=== PATIENT | female | born 1955 | race Caucasian/White ===

== ENCOUNTER 2022-10-02 18:34 | Emergency (ER) | payer MEDICARE, OTHER ==
--- NOTE | 2022-10-02 18:56 | ED ---
General Adult HPI - General Source: RN notes reviewed <Henny Velazquez - Last Filed: 10/02/22 18:53> <Aura Angela - Last Filed: 10/03/22 02:56> - General Stated complaint: constipation Time Seen by Provider: 10/02/22 18:53 - History of Present Illness Initial comments: 67-year-old female presents the emergency department with chief complaint of constipation. Reports accompanying nausea and vomiting. Reports last bowel movement approximately 8 days ago. (Henny Velazquez) 67-year-old female presenting with chief complaint of constipation. Last BM was 7-8 days ago. Patient is currently diagnosed with terminal pancreatic cancer. Her brother at bedside states that the patient has hardly been eating or drinking and he is concerned for dehydration. He states that they currently have a social work supervisor working on placement for [facility]. Patient has tried multiple at home remedies for constipation including stool softeners. States that she has had an episode of nausea and vomiting. No fevers or chills. No chest pain or difficulty breathing. No URI like symptoms. No dysuria or hematuria. (Aura Angela) - Related Data Home Medications Medication Instructions Recorded Confirmed Atorvastatin [Lipitor] 80 mg PO DAILY 10/02/22 10/02/22 Clopidogrel [Plavix] 75 mg PO DAILY 10/02/22 10/02/22 Cyclobenzaprine [Flexeril] 10 mg PO TID PRN 10/02/22 10/02/22 Dextroamphetamine/Amphetamine 15 mg PO DAILY@1400 10/02/22 10/02/22 [Adderall] Dextroamphetamine/Amphetamine 30 mg PO DAILY@0800 10/02/22 10/02/22 [Adderall] Levothyroxine Sodium [Synthroid] 112 mcg PO DAILY 10/02/22 10/02/22 Lidocaine-Prilocaine Cream [Emla 1 applic TOPICAL DAILY PRN 10/02/22 10/02/22 Cream 2.5%/2.5%] Omeprazole 20 mg PO DAILY 10/02/22 10/02/22 Ondansetron [Zofran] 4 - 8 mg PO Q8H PRN 10/02/22 10/02/22 Prochlorperazine Maleate 10 mg PO Q6H PRN 10/02/22 10/02/22 amLODIPine [Norvasc] 2.5 mg PO DAILY 10/02/22 10/02/22 lisinopriL 40 mg PO DAILY 10/02/22 10/02/22 oxyCODONE HCL [OxyIR] 5 mg PO Q4H PRN 10/02/22 10/02/22 Allergies Allergy/AdvReac Type Severity Reaction Status Date / Time No Known Allergies Allergy Verified 10/02/22 22:14 Review of Systems ROS Other: All systems not noted in ROS Statement are negative. <Henny Velazquez - Last Filed: 10/02/22 18:53> ROS Other: All systems not noted in ROS Statement are negative. <Aura Angela - Last Filed: 10/03/22 02:56> ROS Statement: Those systems with pertinent positive or pertinent negative responses have been documented in the HPI. General Exam <Henny Velazquez - Last Filed: 10/02/22 18:53> Limitations: no limitations General appearance: alert, in no apparent distress Head exam: Present: atraumatic, normocephalic, normal inspection Eye exam: Present: normal appearance, EOMI Neck exam: Present: normal inspection, full ROM Respiratory exam: Present: normal lung sounds bilaterally. Absent: respiratory distress, wheezes, rales, rhonchi, stridor Cardiovascular Exam: Present: regular rate, normal rhythm, normal heart sounds. Absent: systolic murmur, diastolic murmur, rubs, gallop, clicks GI/Abdominal exam: Present: soft, normal bowel sounds. Absent: distended, tenderness, guarding, rebound, rigid Rectal exam: Present: fecal impaction Neurological exam: Present: alert, oriented X3, CN II-XII intact Psychiatric exam: Present: normal affect, normal mood Skin exam: Present: warm, dry, intact, normal color. Absent: rash <Aura Angela - Last Filed: 10/03/22 02:56> - General Exam Comments Initial Comments: Visual Physical Exam Vital signs reviewed General: Well-appearing, nontoxic, no acute distress. Head: Normocephalic, atraumatic Eyes: PERRLA, EOMI ENT: Airway patent Chest: Nonlabored breathing Skin: No visual rash, normal skin tone Neuro: Alert and oriented 3 Musculoskeletal: No gross abnormalities I performed the quick note portion of this exam, verbal signature Henny Velazquez PA-C (Henny Velazquez) Course Vital Signs 10/02/22 10/02/22 10/02/22 18:54 21:59 23:40 Temperature 99.6 F 98.2 F Pulse Rate 112 H 107 H 78 Respiratory 20 18 18 Rate Blood Pressure 107/56 102/67 127/81 O2 Sat by Pulse 98 98 98 Oximetry Medical Decision Making - Lab Data Result diagrams: 10/02/22 21:44 10/02/22 21:44 <Aura Angela - Last Filed: 10/03/22 02:56> - Medical Decision Making Was pt. sent in by a medical professional or institution ([facility], [employer]QUISITION SPECIALIST, urgent care, hospital, or [facility]...) When possible be specific @ -No Did you speak to anyone other than the patient for history (EMS, parent, family, police, friend...)? What history was obtained from this source @ -History supplemented by the patient's brother Did you review nursing and triage notes (agree or disagree)? Why? @ -I reviewed and agree with nursing and triage notes Were old charts reviewed (outside hosp., previous admission, EMS record, old EKG, old radiological studies, urgent care reports/EKG's, [facility] records)? Report findings @ -No old charts were reviewed Differential Diagnosis (chest pain, altered mental status, abdominal pain women, abdominal pain men, vaginal bleeding, weakness, fever, dyspnea, syncope, headache, dizziness, GI bleed, back pain, seizure, CVA, palpatations, mental health, musculoskeletal)? @ -Differential includes constipation, ileus, bowel obstruction, this is not an all inclusive list EKG interpreted by me (3pts min.). @ -As above X-rays interpreted by me (1pt min.). @ -KUB x-ray shows high density stool in the rectum. Otherwise nonspecific bowel gas pattern without radiographic evidence for acute process CT interpreted by me (1pt min.). @ -None done U/S interpreted by me (1pt. min.). @ -None done What testing was considered but not performed or refused? (CT, X-rays, U/S, labs)? Why? @ -None What meds were considered but not given or refused? Why? @ -None Did you discuss the management of the patient with other professionals (professionals i.e. , PA, LAND ACQUISITION SPECIALIST, lab, RT, psych nurse, social work supervisor, bessemer converter operator, teacher, special officer, case management coordinator)? Give summary @ -No Was smoking cessation discussed for >3mins.? @ -No Was critical care preformed (if so, how long)? @ -No Were there social determinants of health that impacted care today? How? (Homelessness, low income, unemployed, alcoholism, drug addiction, transportation, low edu. Level, literacy, decrease access to med. care, fdc, re hab)? @ -No Was there de-escalation of care discussed even if they declined (Discuss DNR or withdrawal of care, Hospice)? DNR status @ -No What co-morbidities impacted this encounter? (DM, HTN, Smoking, COPD, CAD, Cancer, CVA, ARF, Chemo, Hep., AIDS, mental health diagnosis, sleep apnea, morbid obesity)? @ -None Was patient admitted / discharged? Hospital course, mention meds given and route, prescriptions, significant lab abnormalities, going to OR and other pertinent info. @ -67-year-old female with history of terminal pancreatic cancer presenting with chief complaint of constipation. Last bowel movement was 7-8 days ago. KUB x-ray shows high density stool in the rectum. On digital exam the patient is impacted. I attempted to disimpact her however the patient requested that I stop secondary to pain. She is administered an enema and had a fair amount of output. She reports improvement in symptoms after bowel movement. She was given IV fluids. She'll be discharged Home with brother. Follow-up with PCP. Report back to ER with any new or worsening symptoms. Discussed return parameters and answered all questions. Patient conveyed verbal understanding and agreed to the plan. I discussed this case in detail with my attending Dr. Birch Undiagnosed new problem with uncertain prognosis? @ -No Drug Therapy requiring intensive monitoring for toxicity (Heparin, Nitro, Insulin, Cardizem)? @ -No Were any procedures done? @ -No Diagnosis/symptom? @ -Constipation Acute, or Chronic, or Acute on Chronic? @ -Acute Uncomplicated (without systemic symptoms) or Complicated (systemic symptoms)? @ -Uncomplicated Side effects of treatment? @ -No Exacerbation, Progression, or Severe Exacerbation? @ -No Poses a threat to life or bodily function? How? (Chest pain, USA, MS, pneumonia, PE, COPD, DKA, ARF, appy, cholecystitis, CVA, Diverticulitis, Homicidal, Suicidal, threat to staff... and all critical care pts) @ -No (Aura Angela) - Lab Data Lab Results 10/02/22 10/02/22 Range/Units 21:44 21:44 WBC 6.2 (3.8-10.6) k/uL RBC 3.31 L (3.80-5.40) m/uL Hgb 10.1 L (11.4-16.0) gm/dL Hct 29.5 L (34.0-46.0) % MCV 89.0 (80.0-100.0) fL MCH 30.6 (25.0-35.0) pg MCHC 34.4 (31.0-37.0) g/dL RDW 13.4 (11.5-15.5) % Plt Count 252 (150-450) k/uL MPV 8.8 Neutrophils % 70 % Lymphocytes % 28 % Monocytes % 1 % Eosinophils % 0 % Basophils % 0 % Neutrophils # 4.3 (1.3-7.7) k/uL Lymphocytes # 1.7 (1.0-4.8) k/uL Monocytes # 0.1 (0-1.0) k/uL Eosinophils # 0.0 (0-0.7) k/uL Basophils # 0.0 (0-0.2) k/uL Sodium 132 L (137-145) mmol/L Potassium 3.5 (3.5-5.1) mmol/L Chloride 98 (98-107) mmol/L Carbon Dioxide 24 (22-30) mmol/L Anion Gap 10 mmol/L BUN 22 H (7-17) mg/dL Creatinine 1.58 H (0.52-1.04) mg/dL Est GFR (CKD-EPI)AfAm 39 (>60 ml/min/1.73 sqM) Est GFR (CKD-EPI)NonAf 34 (>60 ml/min/1.73 sqM) Glucose 117 H (74-99) mg/dL Calcium 8.4 (8.4-10.2) mg/dL Total Bilirubin 0.7 (0.2-1.3) mg/dL AST 32 (14-36) U/L ALT 22 (4-34) U/L Alkaline Phosphatase 93 (38-126) U/L Total Protein 6.1 L (6.3-8.2) g/dL Albumin 3.1 L (3.5-5.0) g/dL Disposition <Henny Velazquez - Last Filed: 10/02/22 18:53> Is patient prescribed a controlled substance at d/c from ED?: No Time of Disposition: 22:46 <Aura Angela - Last Filed: 10/03/22 02:56> Clinical Impression: Constipation Disposition: HOME SELF-CARE Condition: Good Instructions (If sedation given, give patient instructions): Constipation (ED), High Fiber Diet (ED) Additional Instructions: Follow-up with PCP. Report back to ER with any new or worsening symptoms. Referrals: Nonstaff,Physician [Primary Care Provider] - 1-2 days
--- NOTE | 2022-10-02 20:11 | XR ---
EXAMINATION TYPE: XR KUB DATE OF EXAM: 10/02/2022 7:52 PM INDICATION: Patient age:Female; 67 years old; Reason for study: constipation; COMPARISON: None. TECHNIQUE: One radiographic view of the abdomen was obtained. FINDINGS: High density stool in the rectum. The bowel gas pattern is nonspecific without dilated loop s of small or large bowel. There is no evidence for organomegaly or pneumoperitoneum. The osseous st ructures are intact. No abnormal calcifications are present. Fecal material and gas are demonstrated throughout the colon and rectum. IMPRESSION: High density stool in the rectum, otherwise, Nonspecific bowel gas pattern without radiographic evide nce for acute process.
[2022-10-02] MEDS ORDERED: SODIUM CHLORIDE 0.9% 1,000 ML IV ONE (20:47)
[2022-10-02 22:02] VITALS: RESP 18
[2022-10-02 22:29] LABS: ALT 22 U/L (4-34); AST 32 U/L (14-36); African American GFR (CKD) 39 (>60 ml/min/1.73 sqM); Albumin 3.1 g/dL (3.5-5.0); Alkaline Phosphatase 93 U/L (38-126); Anion Gap 10 mmol/L; Blood Urea Nitrogen 22 mg/dL (7-17); Calcium 8.4 mg/dL (8.4-10.2); Carbon Dioxide 24 mmol/L (22-30); Chloride 98 mmol/L (98-107); Glucose 117 mg/dL (74-99); Non-African American GFR(CKD) 34 (>60 ml/min/1.73 sqM); Potassium 3.5 mmol/L (3.5-5.1); Sodium 132 mmol/L (137-145); Total Bilirubin 0.7 mg/dL (0.2-1.3); Total Protein 6.1 g/dL (6.3-8.2)
[2022-10-02 22:32] LABS: Basophils % (A) 0 %; Eosinophils % (A) 0 %; HCT 29.5 % (34.0-46.0); HGB 10.1 gm/dL (11.4-16.0); Lymphocytes # (A) 1.7 k/uL (1.0-4.8); Lymphocytes % (A) 28 %; MCH 30.6 pg (25.0-35.0); MCHC 34.4 g/dL (31.0-37.0); Mean Platelet Volume 8.8; Monocytes # (A) 0.1 k/uL (0-1.0); Monocytes % (A) 1 %; Neutrophils # (A) 4.3 k/uL (1.3-7.7); Neutrophils % (A) 70 %; Platelet Count 252 k/uL (150-450); RBC 3.31 m/uL (3.80-5.40); RDW 13.4 % (11.5-15.5); WBC 6.2 k/uL (3.8-10.6)
[2022-10-02 23:52] VITALS: BP 127/81; PULSE 78; TEMP 98.2
== END 2022-10-02 23:48 | disposition home or self-care (01) ==
LOC: EC 18:34
DX: R50.9 Fever, unspecified (principal); K59.00 Constipation, unspecified
CPT/HCPCS: 36415; 74018; 80053; 85025; 96360; 99284